=== PATIENT | female | born 1985 | race Caucasian/White ===

== ENCOUNTER 2016-06-05 18:01 | Emergency (ER) | payer OTHER ==
[2016-06-05 18:47] VITALS: BP 123/66
--- NOTE | 2016-06-05 19:09 | ED ---
Throat Pain/Nasal Congestion - HPI Summary HPI Summary: 31 female presents with complaints of nasal congestion, headache and fever/ chills. Patient stated the symptoms began suddenly yesterday and have progressed to be worse today 06/05/16. She states she has been taking Tylenol for fever and headache which give minimal relief. Says her temp was 102.2F at home. Last dose of Tylenol was at 1700 today. Describes the nasal congestion to be stuffed and she is unable to blow it out. States the right side is much worse than the left. Her headache she describes as throbbing and behind her eyes. When she leans forward the pressure behind her eyes/face is extremely uncomfortable. Denies SOB, chest pain, vomiting, abdominal pain. Admits to some ear fullness and an intermittent dry cough. Last sinus infection was a few months ago when she was . She had the flu shot this year. - History of Current Complaint Chief Complaint: UCGeneralIllness Time Seen by Provider: 06/05/16 18:31 Hx Obtained From: Patient Onset/Duration: Sudden Onset Severity: Moderate Associated Signs And Symptoms: Positive: Sinus Discomfort Cough: Nonproductive Related History: Prior ENT Surgery - Allergies/Home Medications Allergies/Adverse Reactions: Allergies Allergy/AdvReac Type Severity Reaction Status Date / Time No Known Allergies Allergy Verified 03/23/16 11:48 Home Medications: Home Medications Acetaminophen [Tylenol] 650 mg PO Q4HR PRN 06/05/16 [History Confirmed 06/05/16] PMH/Surg Hx/FS Hx/Imm Hx Endocrine/Hematology History: Denies: Hx Diabetes, Hx Anemia Cardiovascular History: Denies: Hx Hypertension Respiratory History: Reports: Hx Asthma - Surgical History Surgery Procedure, Year, and Place: Nasal Turbinates, 07/13/15, Dr. Taylor; BREAST AUGMENTATION Infectious Disease History: No Infectious Disease History: Denies: Traveled Outside the [place] in Last 30 Days - Family History Known Family History: Positive: None - neg for htn - Social History Alcohol Use: None Substance Use Type: Reports: None Smoking Status (MU): Never Smoked Tobacco Review of Systems Positive: Fever, Chills Eyes: Negative Positive: Sore Throat, Ear Ache, Nasal Discharge - congestion Cardiovascular: Negative Positive: Cough - dry intermittent Positive: Diarrhea Musculoskeletal: Negative Skin: Negative Positive: Headache Psychological: Normal All Other Systems Reviewed And Are Negative: Yes Physical Exam Triage Information Reviewed: Yes Vital Signs On Initial Exam: Initial Vitals Temp Pulse Resp BP Pulse Ox 99.3 F 109 16 123/66 98 06/05/16 18:41 06/05/16 18:41 06/05/16 18:41 06/05/16 18:41 06/05/16 18:41 tachy and low grade fever noted. Vital Signs Reviewed: Yes Appearance: Positive: Well-Appearing, No Pain Distress, Well-Nourished Skin: Positive: Warm, Skin Color Reflects Adequate Perfusion, Dry Head/Face: Positive: Normal Head/Face Inspection Eyes: Positive: Conjunctiva Clear ENT: Positive: Hearing grossly normal, Pharyngeal erythema, Nasal congestion, TMs normal Dental: Positive: Percussion Tenderness @ - maxillary and frontal sinuses, Cervical Lymphadenopathy Neck: Positive: Supple, Nontender Respiratory/Lung Sounds: Positive: Clear to Auscultation, Breath Sounds Present Cardiovascular: Positive: Normal, RRR, Pulses are Symmetrical in both Upper and Lower Extremities Abdomen Description: Positive: Nontender, No Organomegaly, Soft Bowel Sounds: Positive: Present Musculoskeletal: Positive: Normal, Strength/ROM Intact Neurological: Positive: Normal, Sensory/Motor Intact, Alert, Oriented to Person Place, Time Psychiatric: Positive: Normal Diagnostics - Vital Signs Vital Signs Temp Pulse Resp BP Pulse Ox 06/05/16 18:41 99.3 F 109 16 123/66 98 - Laboratory Lab Statement: Any lab studies that have been ordered have been reviewed, and results considered in the medical decision making process. EENT Course/Dx - Course Course Of Treatment: instructed to use saline rinses. prescribed flonase to use for next 2 days and antibiotic safe with for the next 7 days. - Differential Diagnoses Differential Diagnoses: Cerumen Impaction, Influenza, Otitis Media, Sinusitis - Diagnoses Provider Diagnoses: Acute bacterial sinusitis Discharge - Discharge Plan Condition: Stable Disposition: HOME Prescriptions: Amoxicillin CAP* 1,000 mg PO TID #42 cap Fluticasone NASAL SPRAY 50MCG* [Flonase NASAL SPRAY 50MCG*] 2 spray BOTH NARES DAILY #1 btl Patient Education Materials: Sinusitis (ED) Referrals: RISHI Johnson [Primary Care Provider] - Additional Instructions: Take medications as prescribed. You may also want to use saline nasal spray for the next 5-7 days in both nostrils as we discussed. Wash hands frequently and drink plenty of fluids. Continue taking Tylenol for fever and headache every 4- 6 hours. Hot compresses on your cheeks may help relieve discomfort. Take probiotics or eat amharic yogurt with live cultures a few hours after taking antibiotic to help replenish good bacteria and avoid complication. If symptoms are not improving or are worsening please return or make an appointment with your PCP.
== END 2016-06-05 19:16 | disposition home or self-care (01) ==
LOC: UCCORT 18:01
DX: J01.90 Acute sinusitis, unspecified (principal)
CPT/HCPCS: 99212; G0463

== ENCOUNTER 2016-10-28 16:57 | Emergency (ER) | payer OTHER ==
[2016-10-28 17:33] VITALS: BP 103/70
--- NOTE | 2016-10-28 17:55 | ED ---
Throat Pain/Nasal Congestion - HPI Summary HPI Summary: 31 yr old female with the complaint of sinus congestion, post nasal drip, and fullness in her face when bends forward. She states she has a symptom of burning in the sinuses with bending forward which also make the symptoms worse.. The patient denies fever and chills. Onset of her symptoms was three days ago. - History of Current Complaint Chief Complaint: UCHeadache Time Seen by Provider: 10/28/16 17:36 - Allergies/Home Medications Allergies/Adverse Reactions: Allergies Allergy/AdvReac Type Severity Reaction Status Date / Time No Known Allergies Allergy Verified 10/28/16 17:29 Home Medications: Home Medications Albuterol HFA INHALER* [Ventolin HFA Inhaler*] 1 - 2 puff INH Q4H PRN 10/28/16 [ History Confirmed 10/28/16] Xmiftap-Xndaaxysuxpvu-Acjqpkih [Excedrin Migraine] 1 tab PO ONCE 10/28/16 [ History Confirmed 10/28/16] Norethindrone (Contraceptive) [Eva-Be] 0.35 mg PO 2100 10/28/16 [History Confirmed 10/28/16] PMH/Surg Hx/FS Hx/Imm Hx Previously Healthy: Yes Endocrine/Hematology History: Denies: Hx Diabetes, Hx Anemia Cardiovascular History: Denies: Hx Hypertension Respiratory History: Reports: Hx Asthma - Surgical History Surgery Procedure, Year, and Place: Nasal Turbinates, 07/13/15, Dr. Taylor; BREAST AUGMENTATION Infectious Disease History: No Infectious Disease History: Denies: Traveled Outside the [place] in Last 30 Days - Family History Known Family History: Positive: None - neg for htn - Social History Alcohol Use: None Substance Use Type: Reports: None Smoking Status (MU): Never Smoked Tobacco Review of Systems Constitutional: Negative Negative: Fever, Chills Positive: Sore Throat - scratchy throat, Other - sinus pressure Negative: Shortness Of Breath All Other Systems Reviewed And Are Negative: Yes Physical Exam Triage Information Reviewed: Yes Vital Signs On Initial Exam: Initial Vitals Temp Pulse Resp BP Pulse Ox 98.8 F 72 16 103/70 99 10/28/16 17:26 10/28/16 17:26 10/28/16 17:26 10/28/16 17:26 10/28/16 17:26 Vital Signs Reviewed: Yes Appearance: Positive: Well-Appearing, No Pain Distress Skin: Positive: Warm Head/Face: Positive: Normal Head/Face Inspection Eyes: Positive: Normal, EOMI, OMNICA ENT: Positive: Pharynx normal, Nasal congestion, TMs normal, Other - positive sinus tenderness Neck: Positive: Supple, Nontender Respiratory/Lung Sounds: Positive: Clear to Auscultation, Breath Sounds Present Cardiovascular: Positive: Normal, RRR Abdomen Description: Positive: Nontender Musculoskeletal: Positive: Strength/ROM Intact Neurological: Positive: Normal, Sensory/Motor Intact, Alert, Oriented to Person Place, Time, CN Intact II-III, Normal Gait Psychiatric: Positive: Normal Diagnostics - Vital Signs Vital Signs Temp Pulse Resp BP Pulse Ox 10/28/16 17:26 98.8 F 72 16 103/70 99 - Laboratory Lab Statement: Any lab studies that have been ordered have been reviewed, and results considered in the medical decision making process. EENT Course/Dx - Course Course Of Treatment: 31 yr old female with sinus congestion and post nasal drip. Will Rx with zithromax for sinusitis - Diagnoses Provider Diagnoses: Sinusitis Discharge - Discharge Plan Condition: Good Disposition: HOME Prescriptions: Azithromycin TAB* [Zithromax TAB (Z-DANA) 250 mg #6 tabs] 2 tab PO .TODAY, THEN 1 DAILY #1 dana Patient Education Materials: Sinusitis (ED) Referrals: RISHI Johnson [Primary Care Provider] -
== END 2016-10-28 18:02 | disposition home or self-care (01) ==
LOC: UCCORT 16:57
DX: J32.9 Chronic sinusitis, unspecified (principal)
CPT/HCPCS: 99212; G0463

== ENCOUNTER 2016-12-28 07:23 | Emergency (ER) | payer OTHER ==
[2016-12-28 07:37] VITALS: BP 117/42
--- NOTE | 2016-12-28 08:45 | UC ---
Throat Pain/Nasal John HPI - HPI Summary HPI Summary: sore throat and ear ache started yesterday. this AM pt noted white spots on her throat. - History of Current Complaint Chief Complaint: UCGeneralIllness Stated Complaint: SORE THROAT, EAR PAIN Time Seen by Provider: 12/28/16 07:59 Hx Obtained From: Patient Hx Last Menstrual Period: ~09/23/16 ?: No Onset/Duration: Sudden Onset, Lasting Days, Still Present, Worse Since - this am Severity: Moderate Pain Intensity: 5 Cough: None Associated Signs & Symptoms: Positive: Dysphagia - pain. Negative: FB Sensation , Drooling, Wheezing, Sinus Discomfort, Nasal Discharge, Fever, Vomiting, Rash - Epiglottits Risk Factors Epiglottis Risk Factors: Negative - Allergies/Home Medications Allergies/Adverse Reactions: Allergies Allergy/AdvReac Type Severity Reaction Status Date / Time No Known Allergies Allergy Verified 12/28/16 07:32 PMH/Surg Hx/FS Hx/Imm Hx Previously Healthy: Yes - Surgical History Surgical History: Yes Surgery Procedure, Year, and Place: Nasal Turbinates, 07/13/15, Dr. Taylor; BREAST AUGMENTATION - Family History Known Family History: Positive: Cardiac Disease, Diabetes Negative: Hypertension - Social History Occupation: Employed Part-time, Student Lives: With Family Alcohol Use: None Substance Use Type: None Smoking Status (MU): Never Smoked Tobacco - Immunization History Most Recent Influenza Vaccination: Current for Season Review of Systems Constitutional: Negative Skin: Negative Eyes: Negative ENT: Sore Throat, Ear Ache Respiratory: Negative Cardiovascular: Negative Gastrointestinal: Negative Genitourinary: Negative Musculoskeletal: Negative Neurological: Negative Psychological: Negative Is Patient Immunocompromised?: No All Other Systems Reviewed And Are Negative: Yes Physical Exam Triage Information Reviewed: Yes Vital Signs: Initial Vital Signs Temp 98.3 F 12/28/16 07:33 Pulse 69 12/28/16 07:33 Resp 18 12/28/16 07:33 BP 117/42 12/28/16 07:33 Pulse Ox 99 12/28/16 07:33 ENT: Positive: Hearing grossly normal, Pharyngeal erythema, TMs normal, Tonsillar swelling, Tonsillar exudate. Negative: Nasal congestion, Nasal drainage, Trismus, Muffled/hoarse voice - Additional Comments Appearance: Well-Appearing, No Pain Distress, Well-Nourished Eyes: conjunctiva clear, negative: discharge Neck: Normal, Supple Respiratory/Lung Sounds: Lungs clear, Normal breath sounds, No respiratory distress, No accessory muscle use Cardiovascular: RRR, No murmur Musculoskeletal: Normal Neurological: Alert, muscle tone normal Psychiatric: Normal, age appropriate behavior Skin: Normal, other -- Warm, Dry, Normal color Throat Pain/Nasal Course/Dx - Differential Dx/Diagnosis Differential Diagnosis/HQI/PQRI: Pharyngitis, Sinusitis, Tonsillitis, URI Provider Diagnoses: strep throat Discharge - Discharge Plan Condition: Stable Disposition: HOME Prescriptions: Amoxicillin PO (*) [Amoxicillin 500 MG CAP*] 500 mg PO Q12H #20 cap Patient Education Materials: Strep Throat (ED) Referrals: RISHI Johnson [Primary Care Provider] - If Needed Additional Instructions: AMOXICILLIN: Amoxicillin is a member of the penicillin family. It covers the germs likely to cause ear, bronchial, and urinary infections better than plain penicillin. Amoxicillin can be taken without regard to meals. Nausea after taking the medication is rare, but can occur. Diarrhea can occur, particularly in small children. Vaginal yeast infections and oral thrush in infants are also common. Contact your physician if these problems occur. Allergy to penicillins is common. If you have had an allergic reaction to any drug of the penicillin family, you should never take any other penicillin. Notify your doctor at once if you develop hives, itching, swelling, faintness, or shortness of breath. Less serious side effects can include nausea or diarrhea. ANYTIME YOU TAKE AN ANTIBIOTIC, IT IS IMPORTANT TO REPLENISH THE BODY'S SUPPLY OF "GOOD BACTERIA." YOU CAN GET GOOD BACTERIA FROM HIGH QUALITY CULTURED FOODS SUCH LOCAL YOGURT, SOUR KRAUT, RAMEZ SUNNY, NATURALLY FERMENTED PICKLES AND PROBIOTIC DRINKS. YOU CAN ALSO GET GOOD BACTERIA FROM A PROBIOTIC SUPPLEMENT.
== END 2016-12-28 08:50 | disposition home or self-care (01) ==
LOC: UCCORT 07:23
DX: J02.0 Streptococcal pharyngitis (principal)
CPT/HCPCS: 87651; 99212; G0463

== ENCOUNTER 2017-02-11 16:53 | Emergency (ER) | payer OTHER ==
[2017-02-11 18:31] VITALS: BP 117/78
--- NOTE | 2017-02-11 20:05 | UC ---
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 [employer] Hx Last Menstrual Period: today Onset/Duration: Gradual Onset, Lasting Days Severity: Moderate Pain Intensity: 5 Pain Scale Used: 0-10 Numeric Cough: None Associated Signs & Symptoms: Positive: Hoarseness, Fever - Epiglottits Risk Factors Epiglottis Risk Factors: Negative - Allergies/Home Medications Allergies/Adverse Reactions: Allergies Allergy/AdvReac Type Severity Reaction Status Date / Time No Known Allergies Allergy Verified 02/11/17 18:31 PMH/Surg Hx/FS Hx/Imm Hx Previously Healthy: Yes - Surgical History Surgical History: Yes Surgery Procedure, Year, and Place: Nasal Turbinates, 07/13/15, Dr. Taylor; BREAST AUGMENTATION - Family History Known Family History: Positive: None - neg for htn, Cardiac Disease, Diabetes Negative: Hypertension - Social History Occupation: Works From/At Home Lives: With Family Alcohol Use: None Substance Use Type: None Smoking Status (MU): Never Smoked Tobacco - Immunization History Most Recent Influenza Vaccination: Current for Season Review of Systems Constitutional: Fever, Fatigue Skin: Negative Eyes: Negative ENT: Sore Throat Respiratory: Negative Cardiovascular: Negative Gastrointestinal: Negative Genitourinary: Negative Motor: Negative Neurovascular: Negative Musculoskeletal: Negative Neurological: Negative Psychological: Negative Is Patient Immunocompromised?: No All Other Systems Reviewed And Are Negative: Yes Physical Exam Triage Information Reviewed: Yes Appearance: No Pain Distress, Well-Nourished, Ill-Appearing Vital Signs: Initial Vital Signs Temp 99.4 F 02/11/17 18:24 Pulse 81 02/11/17 18:24 Resp 18 02/11/17 18:24 BP 117/78 02/11/17 18:24 Pulse Ox 99 02/11/17 18:24 Vital Signs Reviewed: Yes Eye Exam: Normal ENT: Positive: Pharyngeal erythema, TMs normal Dental Exam: Normal Neck exam: Normal Neck: Positive: Supple, Nontender Respiratory Exam: Normal Respiratory: Positive: Chest non-tender, Lungs clear, Normal breath sounds, No respiratory distress Cardiovascular Exam: Normal Cardiovascular: Positive: RRR, No Murmur, Pulses Normal, Brisk Capillary Refill Abdominal Exam: Normal Abdomen Description: Positive: Nontender, No Organomegaly Musculoskeletal Exam: Normal Musculoskeletal: Positive: Strength Intact, ROM Intact Neurological Exam: Normal Psychological Exam: Normal Skin Exam: Normal Throat Pain/Nasal Course/Dx - Differential Dx/Diagnosis Differential Diagnosis/HQI/PQRI: Pharyngitis, Tonsillitis Provider Diagnoses: PHARYNGITIS Discharge - Discharge Plan Condition: Stable Disposition: HOME Prescriptions: Amoxicillin/Clavulanate TAB* [Augmentin TAB 875*] 875 mg PO BID #20 tab Patient Education Materials: Tonsillitis (ED) Referrals: RISHI Johnson [Primary Care Provider] -
== END 2017-02-11 19:36 | disposition home or self-care (01) ==
LOC: UCCORT 16:53
DX: J02.9 Acute pharyngitis, unspecified (principal); R50.9 Fever, unspecified; R53.83 Other fatigue
CPT/HCPCS: 87651; 99212; G0463

== ENCOUNTER 2017-05-14 16:25 | Emergency (ER) | payer OTHER ==
[2017-05-14 19:28] VITALS: BP 97/78
--- NOTE | 2017-05-14 19:58 | UC ---
Throat Pain/Nasal John HPI - HPI Summary HPI Summary: This is an otherwise healthy 32 yo female who presents with c/o congestion, ear pain and ST. The ST is keeping her up at night. No fever. No cough or SOB. No abd pain, but some nausea and fatigue. Her daughter is sick with similar symptoms. - History of Current Complaint Chief Complaint: UCGeneralIllness Stated Complaint: EAR(S),SORE THROAT,LOW FEVER Hx Last Menstrual Period: today Pain Intensity: 5 - Allergies/Home Medications Allergies/Adverse Reactions: Allergies Allergy/AdvReac Type Severity Reaction Status Date / Time No Known Allergies Allergy Verified 05/14/17 19:29 PMH/Surg Hx/FS Hx/Imm Hx Previously Healthy: Yes - Surgical History Surgical History: Yes Surgery Procedure, Year, and Place: Nasal Turbinates, 07/13/15, Dr. Taylor;. BREAST AUGMENTATION - Family History Known Family History: Positive: Cardiac Disease, Diabetes Negative: Hypertension - Social History Alcohol Use: None Substance Use Type: None Smoking Status (MU): Never Smoked Tobacco - Immunization History Most Recent Influenza Vaccination: Current for Season Review of Systems Constitutional: Fatigue Skin: Negative Eyes: Negative ENT: Sore Throat Respiratory: Negative Cardiovascular: Negative Gastrointestinal: Nausea Genitourinary: Negative Motor: Negative Neurovascular: Negative Musculoskeletal: Negative Neurological: Negative Psychological: Negative Is Patient Immunocompromised?: No All Other Systems Reviewed And Are Negative: Yes Physical Exam Triage Information Reviewed: Yes Appearance: Ill-Appearing - mild Vital Signs: Initial Vital Signs Temp 98.4 F 05/14/17 19:25 Pulse 72 05/14/17 19:25 Resp 12 05/14/17 19:25 BP 97/78 05/14/17 19:25 Pulse Ox 97 05/14/17 19:25 Vital Signs Reviewed: Yes ENT: Positive: Pharyngeal erythema - mild, TM dull Neck exam: Normal Neck: Positive: Supple, Nontender, No Lymphadenopathy Respiratory: Positive: Lungs clear, Normal breath sounds. Negative: Crackles, Rhonchi, Wheezing Cardiovascular: Positive: RRR, No Murmur Abdomen Description: Positive: Nontender Musculoskeletal Exam: Normal Neurological: Positive: Alert, Muscle Tone Normal Psychological Exam: Normal Psychological: Positive: Normal Response To Family Skin Exam: Normal Skin: Negative: rashes Throat Pain/Nasal Course/Dx - Course Course Of Treatment: This is an otherwise healthy 32 yo female with c/o congestion, ear pain and ST. She appears to have a mild viral syndrome. Recommend supportive care with addition of benadryl at night. - Differential Dx/Diagnosis Differential Diagnosis/HQI/PQRI: Laryngitis, Pharyngitis, Sinusitis, Tonsillitis , URI Provider Diagnoses: 1. Viral URI Discharge - Discharge Plan Condition: Stable Disposition: HOME Patient Education Materials: Viral Syndrome (ED) Referrals: No Primary Care Phys,NOPCP [Primary Care Provider] - Additional Instructions: Instructions: 1. Trial use of benadryl at night to help with congestion
== END 2017-05-14 19:56 | disposition home or self-care (01) ==
LOC: UCCORT 16:25
DX: J06.9 Acute upper respiratory infection, unspecified (principal)
CPT/HCPCS: 99211; G0463

== ENCOUNTER 2017-11-29 08:48 | Emergency (ER) | payer OTHER ==
[2017-11-29 09:11] VITALS: BP 101/62
--- NOTE | 2017-11-29 09:23 | UC ---
Back Pain HPI - HPI Summary HPI Summary: Bent over to set down groceries last night and felt pop/tear in r lower back, since then has had severe pain with radiation down R leg. Denies bowel or bladder problems, fevers, weight loss, or muscular weakness. Has never had anything like this before. - History of Current Complaint Stated Complaint: LOWER BACK PAIN Time Seen by Provider: 11/29/17 09:06 Hx Obtained From: Patient Hx Last Menstrual Period: today ?: No Onset/Duration: Sudden Onset Timing: Constant Severity Initially: Moderate Severity Currently: Severe Back Pain: Is Discrete @ - R low back Character: Dull, Aching, Throbbing, Stiffness Aggravating Factor(s): Movement, Lifting, Bending, Walking Alleviating Factor(s): Rest, Position Associated Signs And Symptoms: Positive: Pain with Weight Bearing. Negative: Weakness, Numbness, Tingling, Bladder Incontinence, Bowel Incontinence, Weight Loss - Allergies/Home Medications Allergies/Adverse Reactions: Allergies Allergy/AdvReac Type Severity Reaction Status Date / Time No Known Allergies Allergy Verified 11/29/17 09:07 Home Medications: Home Medications Vitamin THERAPEUTIC TAB* [Theragran TAB*] 1 tab PO DAILY 11/29/17 [History Confirmed 11/29/17] PMH/Surg Hx/FS Hx/Imm Hx Respiratory History: Asthma - Surgical History Surgical History: Yes Surgery Procedure, Year, and Place: Nasal Turbinates, 07/13/15, Dr. Taylor;. BREAST AUGMENTATION - Family History Known Family History: Positive: Cardiac Disease, Diabetes Negative: Hypertension - Social History Occupation: Unemployed - full-time parent Lives: With Family Alcohol Use: None Substance Use Type: None Smoking Status (MU): Never Smoked Tobacco - Immunization History Most Recent Influenza Vaccination: Current for Season Review of Systems Constitutional: Negative Skin: Negative Eyes: Negative ENT: Negative Respiratory: Negative Cardiovascular: Negative Gastrointestinal: Negative Genitourinary: Negative Motor: Negative Neurovascular: Negative Musculoskeletal: Arthralgia, Decreased ROM, Myalgia Neurological: Negative Psychological: Negative Is Patient Immunocompromised?: No All Other Systems Reviewed And Are Negative: Yes Physical Exam Triage Information Reviewed: Yes Appearance: Pain Distress - marked -- tearful, Thin Vital Signs Reviewed: Yes Eye Exam: Normal Eyes: Positive: Conjunctiva Clear ENT Exam: Normal ENT: Positive: Normal ENT inspection, Hearing grossly normal, Pharynx normal, TMs normal Dental Exam: Normal Dental: Positive: Percussion Tenderness @, Gross Decay/Caries @, Dental Fracture @ Neck exam: Normal Neck: Positive: Supple, Nontender, No Lymphadenopathy Respiratory Exam: Normal Respiratory: Positive: Chest non-tender, Lungs clear, Normal breath sounds, No respiratory distress, No accessory muscle use Cardiovascular Exam: Normal Cardiovascular: Positive: RRR, No Murmur Abdomen Description: Positive: Soft. Negative: CVA Tenderness (R), CVA Tenderness (L) Musculoskeletal Exam: Other - No back tenderness. SLR positive R side at 60' Musculoskeletal: Positive: ROM Limited @ - back Neurological: Positive: Alert Psychological Exam: Normal Skin Exam: Normal Back Pain Course/Dx - Differential Dx/Diagnosis Provider Diagnoses: R lumbar radiculopathy Discharge - Sign-Out/Discharge Documenting (check all that apply): Patient Departure - Discharge Plan Condition: Stable Disposition: HOME Prescriptions: Cyclobenzaprine (NF) [Cyclobenzaprine 5 MG (NF)] 5 - 10 mg PO TID PRN #45 tab PRN Reason: Pain HYDROcodone/ACETAMIN 5-325 MG* [[place] 5-325 TAB*] 1 tab PO Q6H PRN #20 tab MDD 4 PRN Reason: Pain predniSONE TAB* [Deltasone 10 MG TAB*] 10 mg PO DAILY #45 tab Patient Education Materials: Lumbar Radiculopathy (ED) Referrals: Non Staff,Doctor [Primary Care Provider] - 4 Days Additional Instructions: Try to avoid any lifting or bending, but I encourage gentle walking and frequent position changes. Likely this pain will gradually go down in the coming days. If not you may need imaging or other workup. If you develop weakness in the legs, fever, or trouble with your bowel or bladder please go to the emergency department right away. Get in for a follow-up visit with your primary care clinic by the end of the week. - Billing Disposition and Condition Condition: STABLE Disposition: Home
== END 2017-11-29 09:42 | disposition home or self-care (01) ==
LOC: UCCORT 08:48
DX: M54.16 Radiculopathy, lumbar region (principal)
CPT/HCPCS: 99212; G0463

== ENCOUNTER 2018-05-13 15:46 | Emergency (ER) | payer OTHER ==
[2018-05-13 16:22] VITALS: BP 150/75
--- NOTE | 2018-05-13 16:32 | ED ---
Throat Pain/Nasal Congestion - HPI Summary HPI Summary: 33 yr old female with the complaint of sinus pressure right side, post nasal drip. Onset two days ago. Pain in upper right teeth as well. No fever or chills. She has a cough. - History of Current Complaint Chief Complaint: UCRespiratory Time Seen by Provider: 05/13/18 16:24 - Allergies/Home Medications Allergies/Adverse Reactions: Allergies Allergy/AdvReac Type Severity Reaction Status Date / Time No Known Allergies Allergy Verified 05/13/18 16:16 PMH/Surg Hx/FS Hx/Imm Hx Endocrine/Hematology History: Denies: Hx Diabetes, Hx Anemia Cardiovascular History: Denies: Hx Hypertension Respiratory History: Reports: Hx Asthma - Surgical History Surgery Procedure, Year, and Place: Nasal Turbinates, 07/13/15, Dr. Taylor;. BREAST AUGMENTATION Infectious Disease History: No Infectious Disease History: Denies: Traveled Outside the [place] in Last 30 Days - Family History Known Family History: Positive: Cardiac Disease, Diabetes Negative: Hypertension - Social History Occupation: Employed Full-time Alcohol Use: None Substance Use Type: Reports: None Smoking Status (MU): Never Smoked Tobacco Review of Systems Constitutional: Negative Positive: Sore Throat, Nasal Discharge Positive: Cough All Other Systems Reviewed And Are Negative: Yes Physical Exam Triage Information Reviewed: Yes Vital Signs On Initial Exam: Initial Vitals Temp Pulse Resp BP Pulse Ox 98.6 F 79 16 150/75 100 05/13/18 16:17 05/13/18 16:17 05/13/18 16:17 05/13/18 16:17 05/13/18 16:17 Vital Signs Reviewed: Yes Appearance: Positive: Well-Appearing, No Pain Distress Skin: Positive: Warm, Skin Color Reflects Adequate Perfusion Head/Face: Positive: Normal Head/Face Inspection Eyes: Positive: EOMI ENT: Positive: Pharyngeal erythema, Nasal congestion, Nasal drainage, TMs normal , Sinus tenderness Neck: Positive: Nontender Respiratory/Lung Sounds: Positive: Clear to Auscultation, Breath Sounds Present Cardiovascular: Positive: RRR. Negative: Murmur Abdomen Description: Negative: Distended Musculoskeletal: Positive: Strength/ROM Intact Neurological: Positive: Sensory/Motor Intact, Alert, Oriented to Person Place, Time, CN Intact II-III Psychiatric: Positive: Normal Diagnostics - Vital Signs Vital Signs Temp Pulse Resp BP Pulse Ox 05/13/18 16:17 98.6 F 79 16 150/75 100 - Laboratory Lab Statement: Any lab studies that have been ordered have been reviewed, and results considered in the medical decision making process. EENT Course/Dx - Course Course Of Treatment: 33 yr old with sinusitis. Rx with augmentin - Diagnoses Provider Diagnoses: Sinusitis Discharge - Sign-Out/Discharge Documenting (check all that apply): Patient Departure All imaging exams completed and their final reports reviewed: No Studies - Discharge Plan Condition: Good Disposition: HOME Prescriptions: Amoxicillin/Clavulanate TAB* [Augmentin TAB 875*] 875 mg PO BID #20 tab Patient Education Materials: Sinusitis (ED), Hypertension (ED) Referrals: Redd Rosenthal MD [Primary Care Provider] - 2 Days - Billing Disposition and Condition Condition: GOOD Disposition: Home
== END 2018-05-13 16:34 | disposition home or self-care (01) ==
LOC: UCCORT 15:46
DX: J32.9 Chronic sinusitis, unspecified (principal); K08.89 Other specified disorders of teeth and supporting structures
CPT/HCPCS: 99212; G0463

== ENCOUNTER 2018-08-07 09:17 | Emergency (ER) | payer OTHER ==
[2018-08-07 09:33] VITALS: BP 122/81
[2018-08-07] MEDS ORDERED: Ondansetron TAB* 4 MG PO ONE (09:51)
[2018-08-07] MEDS ORDERED: Ondansetron ODT TAB* 4 MG PO ONE (09:54)
--- NOTE | 2018-08-07 09:58 | ED ---
Nausea/Vomiting/Diarrhea HPI - HPI Summary HPI Summary: 33 yo WF presents with nausea and vomiting since 5pm last night, associated with low grade fever and loose stools- one episode, pt's 2 yo son has the same thing with vomiting and has not been able to keep anything dowm since 5pm - History of Current Complaint Chief Complaint: UCGI Stated Complaint: VOMITING, FEVER Time Seen by Provider: 08/07/18 09:31 Hx Obtained From: Patient Hx Last Menstrual Period: none since childbirth Onset/Duration: Sudden Onset Severity Initially: Moderate Severity Currently: Moderate Pain Intensity: 0 - Allergies/Home Medications Allergies/Adverse Reactions: Allergies Allergy/AdvReac Type Severity Reaction Status Date / Time No Known Allergies Allergy Verified 08/07/18 09:33 Home Medications: Home Medications Albuterol HFA INHALER* [Ventolin HFA Inhaler*] 2 puff INH Q4H PRN 08/07/18 [ History Confirmed 08/07/18] PMH/Surg Hx/FS Hx/Imm Hx Previously Healthy: Yes Endocrine/Hematology History: Denies: Hx Diabetes, Hx Anemia Cardiovascular History: Denies: Hx Hypertension Respiratory History: Reports: Hx Asthma - Surgical History Surgery Procedure, Year, and Place: Nasal Turbinates, 07/13/15, Dr. Taylor;. BREAST AUGMENTATION Infectious Disease History: No Infectious Disease History: Denies: Traveled Outside the [place] in Last 30 Days - Family History Known Family History: Positive: Cardiac Disease, Diabetes Negative: Hypertension - Social History Alcohol Use: None Substance Use Type: Reports: None Smoking Status (MU): Never Smoked Tobacco Review of Systems - ROS Summary Review of Systems Summary: Constitutional: Negative Eyes: Negative ENT: Negative Cardiovascular: Negative Respiratory: Negative Gastrointestinal: n/v/d Genitourinary: Negative Musculoskeletal: Negative Skin: Negative Neurological: Negative Psychological: Normal All Other Systems Reviewed And Are Negative: Yes Physical Exam - Summary Physical Exam Summary: Appearance: Positive: No Pain Distress Skin: Positive: Warm Head/Face: Positive: Normal Head/Face Inspection Eyes: Positive: Normal ENT: Positive: Normal ENT inspection Neck: Positive: Supple Respiratory/Lung Sounds: Positive: Clear to Auscultation. Negative: Rales, Rhonchi, Wheezes Cardiovascular: Positive: Normal, RRR, S1, S2 Abdomen Description: Positive: Nontender, Soft Musculoskeletal: Positive: Normal, Strength/ROM Intact Neurological: Positive: CN Intact II-III Vital Signs On Initial Exam: Initial Vitals Temp Pulse Resp BP Pulse Ox 36.8 C 94 18 122/81 98 08/07/18 09:28 08/07/18 09:28 08/07/18 09:28 08/07/18 09:28 08/07/18 09:28 Diagnostics - Vital Signs Vital Signs Temp Pulse Resp BP Pulse Ox 08/07/18 09:28 36.8 C 94 18 122/81 98 - Laboratory Lab Statement: Any lab studies that have been ordered have been reviewed, and results considered in the medical decision making process. Naus/Vom/Diarrhea Course/Dx - Differential Dx/Diagnosis Provider Diagnosis: Nausea & vomiting Discharge - Sign-Out/Discharge Documenting (check all that apply): Patient Departure All imaging exams completed and their final reports reviewed: No Studies - Discharge Plan Condition: Stable Disposition: HOME Prescriptions: Ondansetron ODT TAB* [Zofran 4 MG Odt TAB*] 4 mg PO Q6H PRN 5 Days #20 tab.odt PRN Reason: Nausea Patient Education Materials: Acute Nausea and Vomiting (ED) Referrals: Redd Rosenthal MD [Primary Care Provider] - - Billing Disposition and Condition Condition: STABLE Disposition: Home
== END 2018-08-07 10:36 | disposition home or self-care (01) ==
LOC: UCCORT 09:17
DX: R11.2 Nausea with vomiting, unspecified (principal); R50.9 Fever, unspecified
CPT/HCPCS: 99212; A9270-GY; G0463